=== PATIENT | male | born 1970 | race Caucasian/White ===

== ENCOUNTER 2018-08-05 13:20 | Outpatient (CLI) | payer OTHER | END 2018-08-05 13:57 | disposition home or self-care (01) | LOC: TOM 13:20 | DX: K40.00 Bilateral inguinal hernia, with obstruction, without gangrene, not specified as recurrent (principal); K45.0 Other specified abdominal hernia with obstruction, without gangrene ==

== ENCOUNTER → 2019-02-24 12:54 | Outpatient (CLI) | payer OTHER | END | disposition home or self-care (01) | LOC: LAB 12:54 | DX: N20.0 Calculus of kidney (principal) ==

== ENCOUNTER 2019-03-10 09:49 | Outpatient (CLI) | payer OTHER | END 2019-03-10 10:02 | disposition home or self-care (01) | LOC: NUCLEAR 09:49 | DX: I82.401 Acute embolism and thrombosis of unspecified deep veins of right lower extremity (principal) ==

== ENCOUNTER 2019-03-25 10:06 | Outpatient (CLI) | payer OTHER | END 2019-03-25 17:00 | disposition home or self-care (01) | LOC: TOM 10:06 | DX: C83.7 Burkitt lymphoma (principal) ==